=== PATIENT | female | born 1945 | race Caucasian/White ===

== ENCOUNTER → 2016-08-29 | Outpatient (CLI) | payer MEDICARE ==
[2014-08-22 11:24] VITALS: BP 221/91
[~2016-08-29] MED LIST: BENA1TAB7 PO
--- NOTE | 2016-08-29 09:30 | RAD ---
Indication claudication. Pain. Grayscale color Doppler and spectral analysis was performed. The examination was targeted to the major arteries of the lower extremities. The right common femoral artery has a biphasic waveform indicative of a component of inlet disease. There is a monophasic waveform in the deep femoral. Monophasic waveforms are seen throughout the course of the superficial femoral artery indicative of a component of mild narrowing at the common femoral SFA junction. The popliteal artery has a biphasic waveform. The posterior tibial artery proximally and distally has a monophasic waveform. Monophasic waveform is seen in the peroneal artery. The anterior tibial and dorsal pedal arteries are monophasic. On the left there is a biphasic waveform seen associated with the common femoral artery, indicative of a component of inlet disease. There is a monophasic waveform associated with In the deep femoral. A biphasic waveform continues throughout the superficial femoral artery and into the popliteal artery. The posterior tibial artery proximally and distally has a biphasic waveform. Peroneal artery also is biphasic. Anterior tibial artery and dorsal pedal arteries are both biphasic. IMPRESSION: Mild inlet disease bilaterally. Mild superimposed stenosis at the right common femoral SFA junction is likely. Significant arterial narrowing in the major vessels of the left lower extremity is not seen. Moderate stenosis is seen associated with the right calf vessels
== END | disposition home or self-care (01) ==
LOC: US 06:27
PROVIDERS: ATTEND Family Medicine
DX: I73.9 Peripheral vascular disease, unspecified (principal)
CPT/HCPCS: 93925

== ENCOUNTER 2017-01-09 22:25 | Emergency (ER) | payer MEDICARE ==
[~2017-01-09] VITALS: Ht 157.5 cm; Wt 86.2 kg
[2017-01-09] MEDS ORDERED: ONDANSETRON ODT 4 MG TAB.RAPDIS. PO ONE (23:15)
[2017-01-09] MEDS ORDERED: FAMOTIDINE 20 MG TABLET. PO ONE (23:15)
[2017-01-09] MEDS ORDERED: LIDO:MAALOX:DONNATAL 1:1:1 15 ML SINGLE DOSE SWSW ONE (23:15)
[2017-01-09] MEDS ORDERED: HYDROcodone/APAP 5/325MG 1 TAB TABLET PO ONE (23:15)
--- NOTE | 2017-01-09 23:28 | PHYS DOC ---
Past Medical History Past Medical History: Asthma, Diabetes-Type II, High Cholesterol, Hypertension Past Surgical History: Hysterectomy, Tonsillectomy Additional Past Surgical Histo: laser eye surgery Alcohol Use: None Drug Use: None Adult General Chief Complaint Chief Complaint: NAUSEA/VOMITING/[facility] HPI Patient is a 71 year old female presenting to the emergency department for evaluation of nausea vomiting and not feeling well for the past 24 hours. She says that the emesis is nonbloody nonbilious and that she thought she was feeling better as she was tolerating crackers and some Sprite however approximately 2 hours prior to arrival she did vomit up some water. She denies any chest pain pain abdominal pain fevers chills dysuria hematuria or back pain diaphoresis. Patient says that she feels well other than the nausea sensation. She denies any diarrhea to me. Review of Systems Review of Systems Constitutional: Denies fever or chills [] Respiratory: Denies cough or shortness of breath [] Cardiovascular: No additional information not addressed in HPI [] GI: Denies abdominal pain. + nausea, vomiting. No bloody stools or diarrhea [] : Denies dysuria or hematuria [] Neurologic: Denies headache, focal weakness or sensory changes [] Current Medications Current Medications Current Medications Medications (Trade) Dose Ordered Sig/[place] Start Time Stop Time Status Last Admin Dose Admin Acetaminophen/ Hydrocodone Bitart (Lortab 5/325) 1 tab 1X ONCE 01/09/17 23:15 01/09/17 23:16 DC 01/09/17 23:27 1 TAB Famotidine (Pepcid) 20 mg 1X ONCE 01/09/17 23:15 01/09/17 23:16 DC 01/09/17 23:30 20 MG Multi-Ingredient Mouthwash/Gargle (Gi Cocktail Single Dose) 15 ml 1X ONCE 01/09/17 23:15 01/09/17 23:16 DC 01/09/17 23:31 15 ML Ondansetron HCl (Zofran Odt) 8 mg 1X ONCE 01/09/17 23:15 01/09/17 23:16 DC 01/09/17 23:28 8 MG Allergies Allergies Allergies Coded Allergies Type Severity Reaction Last Updated Verified No Known Drug Allergies 08/22/14 No Physical Exam Physical Exam Constitutional: Well developed, well nourished, no acute distress, non-toxic appearance. [] Cardiovascular:Heart rate regular rhythm, no murmur [] Lungs & Thorax: Bilateral breath sounds clear to auscultation [] Abdomen: Bowel sounds normal, soft, no tenderness, no masses, no pulsatile masses. [] Skin: Warm, dry, no erythema, no rash. [] Back: No tenderness, no CVA tenderness. [] Neurologic: Alert and oriented X 3, normal motor function, normal sensory function, no focal deficits noted. [] Current Patient Data Vital Signs Vital Signs Date Time Temp Pulse Resp B/P (MAP) Pulse Ox O2 Delivery O2 Flow Rate FiO2 01/09/17 23:27 20 97 01/09/17 22:50 98.5 80 188/86 (120) Room Air 98.5 Lab Values Laboratory Tests Test 01/09/17 23:13 Glucose (Fingerstick) 169 mg/dL (70-99) H EKG EKG [] Radiology/Procedures Radiology/Procedures [] Course & Med Decision Making Course & Med Decision Making I offered IV fluids along with blood work however patient said that she did not want this. She wanted to take medications orally side ordered her a GI cocktail and Pepcid and Zofran and [place] and she was observed in the emergency department for approximately 2 hours and her symptoms resolved and she is drinking water with no difficulty. I will treat her as gastritis and recommended Pepcid [id number] in addition to Maalox for breakthrough symptoms and prescribe her Zofran. I told her that we did not do any testing here so if her symptoms worsen or persist she should come back to the emergency department for blood work and possible imaging. Patient aware and agreeable with plan for discharge and verbalized understanding of the need for short-term follow-up in the strict ED return precautions discussed including worsening pain fevers vomiting or other general concerns. Dragon Disclaimer Dragon Disclaimer This electronic medical record was generated, in whole or in part, using a voice recognition dictation system. Departure Departure Impression: Primary Impression: Nausea & vomiting Disposition: 01 HOME, SELF-CARE Condition: STABLE Referrals: SUNDAR GALLEGOS MD (PCP) Patient Instructions: Nausea and Vomiting Additional Instructions: TAKE OTC PEPCID AND MAALOX FOR YOUR SYMPTOMS. COME BACK TO THE ED WITH WORSENING PAIN, FEVERS, VOMITING, OR OTHER GENERAL CONCERNS. THANK YOU! Scripts Ondansetron (ZOFRAN ODT) 4 Mg Tab.rapdis 4 MG PO BID Y for NAUSEA/VOMITING, #10 TAB Prov: LEXUS ACHARYA DO 01/10/17 Problem Qualifiers Primary Impression: Nausea & vomiting Vomiting type: unspecified Vomiting Intractability: non-intractable Qualified Codes: R11.2 - Nausea with vomiting, unspecified LEXUS ACHARYA DO Jan 09, 2017 23:28
[2017-01-10] MEDS ORDERED: ONDA4TAB10 PO (00:22)
[2017-01-10 00:27] VITALS: BP 157/67
== END 2017-01-10 00:30 | disposition home or self-care (01) ==
LOC: ER 22:25
DX: R11.2 Nausea with vomiting, unspecified (principal); J45.909 Unspecified asthma, uncomplicated; E11.9 Type 2 diabetes mellitus without complications; E78.00 Pure hypercholesterolemia, unspecified; I10 Essential (primary) hypertension
CPT/HCPCS: 82962; 99284; Q0162

== ENCOUNTER → 2019-12-11 | Outpatient (CLI) | payer MEDICARE, OTHER ==
[2017-03-26 11:00] VITALS: BP 147/66
[~2019-12-11] MED LIST changes: +ASPI-630 PO; +ASPI325T8 PO; +ATOR10TA60 PO; +ATOR40TA59 PO; +BENZ200C47 PO; +GLIP10TA24 PO; +METF100010 PO; +ONDA4TAB10 PO; +PRED-220 PO; +SULF-143 PO
--- NOTE | 2019-12-11 17:48 | RAD ---
Bilateral lower extremity arterial ultrasound History: CLAUDICATION Comparison/correlation: 08/29/2016 lower extremity duplex arterial ultrasound exam. Findings: Multiple grayscale, color, and duplex spectral analysis sonographic images were acquired of the lower extremity arteries bilaterally. Calcification of the leon of the lower extremity arterial vasculature diffusely is seen bilaterally. Diffuse monophasic flow bilaterally seen. Diminished peak systolic velocities bilaterally seen but involving the left lower extremity arterial vasculature more so. The stenosis; correlation with previous exam. Velocities in cm/sec: RIGHT Common femoral artery 90 Profunda femoris artery 60 Proximal SFA 60 Mid SFA 65 Distal SFA 36 Popliteal artery 42 Anterior tibial artery 31 Dorsalis pedis artery 36 Posterior tibial artery 55 Peroneal artery 43 LEFT: Common femoral artery 51 Profunda femoris artery 30 Proximal SFA 47 Mid SFA 45 Distal SFA 35 Popliteal artery 27 Anterior tibial artery 15 Dorsalis pedis artery 56 Posterior tibial artery 43 Peroneal artery 24 Impression: Diffusely diminished lower extremity arterial systolic velocities are similar to the prior exam. Consider CTA of the aorta with runoff to assess for more proximal stenosis. Diffuse calcific involvement of the arterial vasculature with monophasic flow bilaterally. No focal stenotic lesion suggested involving the lower extremity arterial vasculature. Electronically signed by: Timur Vincent MD (12/11/2019 5:45 PM) [id number]
== END | disposition home or self-care (01) ==
LOC: US 15:31
PROVIDERS: ATTEND Family Medicine
DX: I70.203 Unspecified atherosclerosis of native arteries of extremities, bilateral legs (principal)
CPT/HCPCS: 93925